=== PATIENT | female | born 2000 | race Caucasian/White ===

== ENCOUNTER 2021-03-29 19:50 | Emergency (ER) | payer SELFPAY ==
[~2021-03-29] VITALS: Ht 177.8 cm; Wt 75.0 kg
[2021-03-29 20:01] VITALS: TEMP 99.1
[2021-03-29 21:15] LABS: STREP SCREEN NEGATIVE
[2021-03-29 21:27] LABS: MONOSCREEN POSITIVE
[2021-03-29 22:22] VITALS: BP 128/87; PULSE 87
== END 2021-03-29 22:22 | disposition home or self-care (01) ==
LOC: COL.ER 19:50
PROVIDERS: Physician Assistant
DX: B27.90 Infectious mononucleosis, unspecified without complication (principal)
CPT/HCPCS: J1100; J2405; J7030